=== PATIENT | female | born 1975 | race Caucasian/White ===

== ENCOUNTER 2021-11-23 08:56 | Day surgery (SDC) | payer MEDICARE ==
--- NOTE | 2021-11-23 08:33 | HP ---
DATE OF SURGERY: 11/23/2021 HISTORY OF PRESENT ILLNESS: The patient is a 46-year-old has question whether she had a bulge on her abdomen. CT scan showed no evidence of enlarged hernia. Given her lower abdominal aches and pains it was felt she would benefit from colonoscopy for further evaluation. She is in need of continuing working on weight loss. PAST MEDICAL HISTORY: Obesity. Hyperlipidemia. Hypertension. Arthritis. Anxiety and depression in the past. Diabetes. PAST SURGICAL HISTORY: She had cholecystectomy in the past. D&C in the past. Hysterectomy in the past. Dr. Raghu Balderrama excised a lipoma from her breast in the past. MEDICATIONS: Venlafaxine, [place]-3, bumetanide, pregabalin, diclofenac, simvastatin, Tricor, bupropion, losartan, insulin Lispro, Humulin R, Trulicity, H24-dlqsk acid. ALLERGIES: METFORMIN. IBUPROFEN. BEES. POSSIBLE REACTION TO SUTURING IN THE PAST. FAMILY HISTORY: Diabetes. SOCIAL HISTORY: No smoking or alcohol abuse. REVIEW OF SYSTEMS: Fourteen systems reviewed. No chest pain or palpitations. Other systems negative or noncontributory as above and per preadmission questionnaire. PHYSICAL EXAMINATION: GENERAL: No acute distress. HEENT: Sclerae nonicteric. NECK: No JVD. CHEST: Equal excursion, nonlabored breathing. CVS: Regular rate and rhythm. ABDOMEN: Obese, soft. EXTREMITIES: No significant edema. NEURO: Alert, oriented, moving extremities symmetrically. RECTAL: Deferred timed to endoscopy exam. PSYCH: Appropriate mood and affect. IMPRESSION: Lower abdominal pain. I feel she would benefit from colonoscopy for further evaluation. Risks and benefits explained in detail including but not limited to bleeding or infection, risk of bowel injury or perforation possibly requiring open procedure, risk of missed or nondiagnosis or incomplete exam possibly requiring barium enema, other studies or procedures, general risk of anesthesia or sedation, risk of bowel prep but not limited to, consent obtained. Will proceed with outpatient follow up colonoscopy under MAC anesthesia. The patient understands she needs to continue weight loss long-term.
[~2021-11-23 08:56] MED LIST: Lactated Ringers 1,000 ML IV SCH
[2021-11-23] MEDS ORDERED: Lactated Ringers 1,000 ML IV ONE (09:45)
[2021-11-23] MEDS ORDERED: DIPRIVAN 200 MG/20 ML IV ONE (10:25)
[2021-11-23] MEDS ORDERED: Xylocaine-Mpf 2% 5 Ml Vial ONE (10:25)
[2021-11-23] MEDS ORDERED: Versed 2 MG/2 ML Injection ONE (10:25)
[2021-11-23] MEDS ORDERED: Ketamine HCl 50 MG/ML ONE (10:26)
[2021-11-23 11:41] VITALS: O2SAT 94
[2021-11-23 11:53] VITALS: BP 146/82; PULSE 80
--- NOTE | 2021-11-24 09:29 | OP ---
SURGERY DATE/TIME: 11/23/2021 1025 PREOPERATIVE DIAGNOSIS: Lower abdominal pain of unclear etiology, need for lower endoscopy to evaluate for colitis, neoplasia or other etiology. POSTOPERATIVE DIAGNOSES: 1) Lower abdominal pain of unclear etiology, need for lower endoscopy to evaluate for colitis, neoplasia or other etiology. 2) ASA Class 3. 3) Withdrawal time 9 minutes. 4) Diverticulosis, small diverticula throughout the colon. 5) Small polys sigmoid colon and rectum. 6) Fair bowel prep. PROCEDURES: 1) Colonoscopy to terminal ileum. 2) Ileoscopy. 3) Random cold biopsies of ileum. 4) Random cold biopsies of colon to evaluate for microscopic ileitis or microscopic colitis. 5) Hot biopsy polypectomy small sigmoid colon polyp. 6) Hot biopsy polypectomy small rectal polyp x2. SURGEON: Dr. Moe Cobos. ANESTHESIA: MAC. ESTIMATED BLOOD LOSS: Minimal. INDICATIONS: As noted above. Risks and benefits explained in detail but not limited to and consent obtained. DESCRIPTION OF PROCEDURE AND FINDINGS: The patient is taken to the operating room. MAC anesthesia introduced. After official time out and no disagreement with planned procedure, digital rectal exam did not reveal any rectal masses. Video colonoscope inserted and passed up the somewhat tortuous sigmoid, descending, transverse and ascending colon around to the cecum. Appendiceal orifice and valve well visualized and photo documented. Prep overall was fair. There was a little bit of liquidy semi-solid stool throughout the colon just slightly limiting the exam for a small lesion. The scope was able to be passed up the terminal ileum, which was grossly unremarkable. However given her abdominal complaints, some random cold biopsies were taken to evaluate for microscopic ileitis in the colon. The scope is pulled back into the colon. Random cold biopsies taken of the colon to evaluate for microscopic colitis. She did have a few small diverticula scattered throughout the colon. Otherwise on careful withdrawal of the scope over the next nine minutes or so, no signs of any large polyps, masses or obstructing lesions. She did have a couple of little small early polyps versus hyperplastic lesion in the sigmoid colon that were removed with hot biopsy forceps as well as a couple in the rectum removed with hot biopsy polypectomy with brief bursts of cautery. Good hemostasis noted. The patient tolerated the procedure well. Findings discussed with the family out in the waiting area.
== END 2021-11-23 11:48 | disposition home or self-care (01) ==
LOC: SDC 08:56
PROVIDERS: ATTEND Surgery
DX: K57.30 Diverticulosis of large intestine without perforation or abscess without bleeding (principal); R10.30 Lower abdominal pain, unspecified; K63.5 Polyp of colon; K62.1 Rectal polyp; E11.9 Type 2 diabetes mellitus without complications
CPT/HCPCS: 82947; J2250; J2704